=== PATIENT | male | born 1950 | race Caucasian/White ===

== ENCOUNTER 2024-08-26 09:21 | Inpatient (IN) | payer MEDICARE ==
[2024-08-26 11:04] VITALS: BMI 24.8
[2024-08-26] MEDS ORDERED: Glucagon 1 MG/ML KIT IM PRN (12:10)
[2024-08-26] MEDS ORDERED: Dextrose 50% Abboject 50 ML SYRINGE SLOW IVP PRN (12:10)
[2024-08-26] MEDS ORDERED: Acetaminophen 325 MG TAB PO PRN (12:10)
[2024-08-26] MEDS: TETANUS, DIPHTHERIA TOX,ADULT (TDVAX) 0.5 ML VIAL IM ONE (13:56)
[2024-08-26] MEDS: Mometasone 200 MCG/Formoterol 5 MCG 120 PUFF INHALER INH SCH (18:51)
[2024-08-26] MEDS: HYDROcodone/Acetaminophen 5/325 mg Tablet PO PRN (19:00)
[2024-08-26] MEDS: metFORMIN 500 MG TAB PO SCH (20:26)
[2024-08-27] MEDS ORDERED: Methocarbamol 500 MG TAB PO PRN (04:37)
[2024-08-27] MEDS ORDERED: Acetaminophen 325 MG TAB PO PRN (04:38)
[2024-08-27 05:13] LABS: #Basophils 0.08 10x3/uL (0.0-0.2); #Eosinophils 0.09 10x3/uL (0.0-0.7); #Monocytes 0.93 10x3/uL (0.11-0.59); #Neutrophils 9.05 10x3/uL (1.40-6.50); %Basophils 0.7 % (0.0-1.0); %Eosinophils 0.8 % (0.0-10.0); %Lymphocytes 12.8 % (21.0-51.0); %Monocytes 8.0 % (0.0-10.0); %Neutrophils 77.4 % (42.0-75.0); Hematocrit 29.3 % (42.0-52.0); Hemoglobin 9.1 g/dL (14.0-18.0); Mean Corpuscular Hemoglobin 30.1 pg (27.0-31.0); Mean Corpuscular Volume 97.0 fL (78.0-98.0); Platelet Count 383 10x3/uL (130-400); Red Blood Cell (RBC) Count 3.02 mill/uL (4.70-6.10); White Blood Cell (WBC) Count 11.69 10x3/uL (4.8-10.8)
[2024-08-27 06:03] LABS: Anion Gap 13 mmol/L (10-20); BUN (Urea Nitrogen) 11 mg/dL (8.4-25.7); Calc. Creatinine Clearance 104 mL/min (70-130); Calcium 8.3 mg/dL (7.8-10.44); Carbon Dioxide 25 mmol/L (23-31); Chloride 104 mmol/L (98-107); Glucose 107 mg/dL (83-110); Potassium 4.1 mmol/L (3.5-5.1); Sodium 138 mmol/L (136-145)
[2024-08-27] MEDS ORDERED: CEFAZOLIN 2 GM VIAL ONE (10:48)
[2024-08-27] MEDS ORDERED: fentaNYL PF 100 MCG/2 ML SYRINGE ONE (10:54)
[2024-08-27] MEDS ORDERED: PROPOFOL 40 ML ONE (10:54)
[2024-08-27] MEDS ORDERED: Lidocaine 1% PF 5 ML VIAL ONE (11:10)
[2024-08-27] MEDS ORDERED: Calcium Chloride 1 GM/10 ML Abboject SYRINGE ONE (11:12)
[2024-08-27] MEDS ORDERED: PHENYLEPHRINE-NS 100 MCG/ML 10 ML SYRINGE ONE ×2 (11:12→12:36)
[2024-08-27] MEDS ORDERED: Ondansetron PF 4 MG/2 ML Vial ONE ×2 (11:19→12:34)
[2024-08-27] MEDS ORDERED: HYDROmorphone 2 MG/ML VIAL ONE (12:06)
[2024-08-27] MEDS ORDERED: PACU-Morphine 4MG/ML VIAL SLOW IVP PRN (12:24)
[2024-08-27] MEDS ORDERED: Ketorolac Tromethamine 30 MG (1 mL) VIAL ONE (12:34)
[2024-08-27 16:18] VITALS: BMI 24.8
[2024-08-27] MEDS: ALPRAZolam 0.25 MG TAB PO SCH (20:07)
[2024-08-28 04:01] LABS: #Basophils 0.03 10x3/uL (0.0-0.2); #Eosinophils Less than 0.03 10x3/uL (0.0-0.7); #Monocytes 1.44 10x3/uL (0.11-0.59); #Neutrophils 13.29 10x3/uL (1.40-6.50); %Basophils 0.2 % (0.0-1.0); %Eosinophils 0.0 % (0.0-10.0); %Lymphocytes 6.2 % (21.0-51.0); %Monocytes 9.1 % (0.0-10.0); %Neutrophils 84.1 % (42.0-75.0); Hematocrit 27.0 % (42.0-52.0); Hemoglobin 8.2 g/dL (14.0-18.0); Mean Corpuscular Hemoglobin 29.7 pg (27.0-31.0); Mean Corpuscular Volume 97.8 fL (78.0-98.0); Platelet Count 438 10x3/uL (130-400); Red Blood Cell (RBC) Count 2.76 mill/uL (4.70-6.10); White Blood Cell (WBC) Count 15.80 10x3/uL (4.8-10.8)
[2024-08-28 04:27] LABS: Anion Gap 16 mmol/L (10-20); BUN (Urea Nitrogen) 14 mg/dL (8.4-25.7); Calc. Creatinine Clearance 92 mL/min (70-130); Calcium 8.5 mg/dL (7.8-10.44); Carbon Dioxide 24 mmol/L (23-31); Chloride 101 mmol/L (98-107); Glucose 114 mg/dL (83-110); Potassium 4.4 mmol/L (3.5-5.1); Sodium 137 mmol/L (136-145)
[2024-08-28 06:04] LABS: Magnesium 1.6 mg/dL (1.6-2.6)
[2024-08-28] MEDS: Senokot S 8.6-50 MG TAB PO SCH (08:53)
[2024-08-28] MEDS: Enoxaparin 40 MG (0.4 mL) SYRINGE SC SCH (08:53)
[2024-08-28] MEDS: Magnesium 2 GM/50 ML(in water) 2 GM in Premix 1 BAG IVPB SCH (08:55)
[2024-08-28] MEDS ORDERED: Propofol BOLUS 1,000 MG/100 ML VIAL IV PRN (14:30)
[2024-08-28] MEDS ORDERED: Fentanyl BOLUS 100 ML IVPB PRN (14:30)
[2024-08-28] MEDS ORDERED: DISCONTINUE PREVIOUS NARCOTIC PAIN MEDICATIONS AND BENZODIAZEPINES FS SCH (14:30)
[2024-08-28 14:38] LABS: Actual Bicarbonate (HCO3a) 23.3 mEq/L (22-28); Base Excess (BEa) -4.9 mEq/L (-2.0 to +3.0); Calcium, Ionized (arterial) 1.16 mmol/L (1.12-1.30); Hematocrit-ABG 25 % (42.0-52.0); Hemoglobin (Hb) 8.5 g/dL (14.0-18.0); O2 Tension (PaO2), arterial 150.9 mmHg (> 70.0); Potassium - ABG Lab 4.35 mmol/L (3.70-5.30)
[2024-08-28 14:39] LABS: ALV-art Gradient 128.350 mmHg (0-20); CO2 Tension 61.8 mmHg (35.0-45.0); Puncture Site Left Brachial artery; pH, Arterial 7.195 (7.35-7.45)
[2024-08-28] MEDS ORDERED: Ventilator Sedation Protocol 1 EACH FS SCH (14:45)
[2024-08-28] MEDS: Ventilator Sedation Protocol 1 EACH FS ONE (15:00)
[2024-08-28 15:13] LABS: Hematocrit 29.5 % (42.0-52.0); Hemoglobin 9.0 g/dL (14.0-18.0); Mean Corpuscular Hemoglobin 30.3 pg (27.0-31.0); Mean Corpuscular Volume 99.3 fL (78.0-98.0); Platelet Count 800 10x3/uL (130-400); Red Blood Cell (RBC) Count 2.97 mill/uL (4.70-6.10); White Blood Cell (WBC) Count 32.29 10x3/uL (4.8-10.8)
[2024-08-28] MEDS: Sodium Bicarb 50 MEQ/50 ML Abboject 8.4% SYRINGE IVP SCH (15:32)
[2024-08-28] MEDS: Pantoprazole 40 MG VIAL IVP SCH (15:33)
[2024-08-28 15:41] LABS: Anisocytosis SLIGHT = 6-15 cells HPF (0-5); Burr Cells MODERATE= 6-15 cells HPF (0-1); Macrocytosis SLIGHT = 6-15 cells HPF (0-5); Platelet Adequacy Comment Platelets Increased; Poikilocytosis SLIGHT = 6-15 cells HPF (0-5); Polychromasia SLIGHT = 2-3 cells HPF (0-2); Smudge Cells 3.0 %
[2024-08-28] MEDS: Azithromycin 500 MG in Sodium Chloride 0.9% 250 ML 250 ML IVPB SCH (15:45)
[2024-08-28] MEDS: cefTRIAXone\\ROCEPHIN 1 GM in Sodium Chloride 0.9% 100 ML IVPB SCH (15:45)
[2024-08-28 17:26] LABS: Actual Bicarbonate (HCO3v) 26.9 mEq/L (22-28); Base Excess -0.9 mEq/L (-2.0 to +3.0); Calcium, Ionized (venous) 1.10 mmol/L (1.16-1.32); Chloride (VBG) 99 mmol/L (98-106); Hematocrit-VBG 25 % (42.0-52.0); Hemoglobin (Hb) 8.5 g/dL (12.6-17.4); Potassium (VBG) 4.28 mmol/L (3.70-5.30); Sodium 135 mmol/L (133-146)
[2024-08-29] MEDS: Pantoprazole 40 MG VIAL IVP SCH (05:20)
[2024-08-29 05:50] LABS: #Basophils Less than 0.03 10x3/uL (0.0-0.2); #Eosinophils Less than 0.03 10x3/uL (0.0-0.7); #Monocytes 0.42 10x3/uL (0.11-0.59); #Neutrophils 12.47 10x3/uL (1.40-6.50); %Basophils 0.1 % (0.0-1.0); %Eosinophils 0.0 % (0.0-10.0); %Lymphocytes 2.4 % (21.0-51.0); %Monocytes 3.2 % (0.0-10.0); %Neutrophils 93.8 % (42.0-75.0); Hematocrit 21.7 % (42.0-52.0); Hemoglobin 6.7 g/dL (14.0-18.0); Mean Corpuscular Hemoglobin 30.5 pg (27.0-31.0); Mean Corpuscular Volume 98.6 fL (78.0-98.0); Platelet Count 405 10x3/uL (130-400); Red Blood Cell (RBC) Count 2.20 mill/uL (4.70-6.10); White Blood Cell (WBC) Count 13.28 10x3/uL (4.8-10.8)
[2024-08-29 06:06] LABS: Anion Gap 15 mmol/L (10-20); BUN (Urea Nitrogen) 15 mg/dL (8.4-25.7); Calc. Creatinine Clearance 98 mL/min (70-130); Calcium 8.1 mg/dL (7.8-10.44); Carbon Dioxide 26 mmol/L (23-31); Chloride 101 mmol/L (98-107); Glucose 135 mg/dL (83-110); Magnesium 1.8 mg/dL (1.6-2.6); Potassium 4.7 mmol/L (3.5-5.1); Sodium 137 mmol/L (136-145)
[2024-08-29] MEDS: Magnesium 2 GM/50 ML(in water) 2 GM in Premix 1 BAG IVPB SCH (08:18)
[2024-08-29] MEDS ORDERED: DC Sedation Protocol FS SCH (13:51)
[2024-08-29 14:59] LABS: Actual Bicarbonate (HCO3v) 23.3 mEq/L (22-28); Base Excess -4.8 mEq/L (-2.0 to +3.0); Calcium, Ionized (venous) 1.19 mmol/L (1.16-1.32); Chloride (VBG) 99 mmol/L (98-106); Hematocrit-VBG 30 % (42.0-52.0); Hemoglobin (Hb) 10.3 g/dL (12.6-17.4); Potassium (VBG) 4.76 mmol/L (3.70-5.30); Sodium 136 mmol/L (133-146)
[2024-08-29 15:09] LABS: Hematocrit 28.7 % (42.0-52.0); Hemoglobin 8.9 g/dL (14.0-18.0); Mean Corpuscular Hemoglobin 30.9 pg (27.0-31.0); Mean Corpuscular Volume 99.7 fL (78.0-98.0); Platelet Count 672 10x3/uL (130-400); Red Blood Cell (RBC) Count 2.88 mill/uL (4.70-6.10); White Blood Cell (WBC) Count 25.42 10x3/uL (4.8-10.8)
[2024-08-29 15:18] LABS: ALT (SGPT) 10 U/L (Less than 45); AST (SGOT) 52 U/L (11-34); Albumin 2.7 g/dL (3.1-4.5); Alkaline Phosphatase 70 U/L (40-110); Anion Gap 18 mmol/L (10-20); BUN (Urea Nitrogen) 22 mg/dL (8.4-25.7); Bilirubin, Total 0.8 mg/dL (0.3-1.2); Calc. Creatinine Clearance 80 mL/min (70-130); Calcium 8.7 mg/dL (7.8-10.44); Carbon Dioxide 24 mmol/L (23-31); Chloride 100 mmol/L (98-107); Globulin 3.0 g/dL (2.4-3.5); Glucose 182 mg/dL (83-110); Potassium 4.8 mmol/L (3.5-5.1); Sodium 137 mmol/L (136-145)
[2024-08-29 15:36] LABS: Macrocytosis SLIGHT = 6-15 cells HPF (0-5); Ovalocytes SLIGHT = 2-5 cells HPF (0-1); Platelet Adequacy Comment Platelets Increased; Polychromasia SLIGHT = 2-3 cells HPF (0-2); Smudge Cells 7.0 %
[2024-08-29 15:43] LABS: Troponin I 6.593 ng/mL (< 0.028)
[2024-08-29] MEDS: Albumin 5% 12.5 GM (250 mL) BOT IVPB SCH (23:55)
[2024-08-30] MEDS: NOREPINEPHRINE 8 MG/250 ML-D5W 250 ML IVPB SCH (01:30)
[2024-08-30] MEDS: NOREPINEPHRINE 8 MG/250 ML-D5W 250 ML ONE (01:40)
[2024-08-30 03:19] LABS: Actual Bicarbonate (HCO3v) 26.3 mEq/L (22-28); Base Excess -0.4 mEq/L (-2.0 to +3.0); Calcium, Ionized (venous) 1.20 mmol/L (1.16-1.32); Chloride (VBG) 99 mmol/L (98-106); Hematocrit-VBG 29 % (42.0-52.0); Hemoglobin (Hb) 9.9 g/dL (12.6-17.4); Potassium (VBG) 5.11 mmol/L (3.70-5.30); Sodium 136 mmol/L (133-146)
[2024-08-30 03:24] LABS: #Basophils Less than 0.03 10x3/uL (0.0-0.2); #Eosinophils Less than 0.03 10x3/uL (0.0-0.7); #Monocytes 0.87 10x3/uL (0.11-0.59); #Neutrophils 19.40 10x3/uL (1.40-6.50); %Basophils 0.0 % (0.0-1.0); %Eosinophils 0.0 % (0.0-10.0); %Lymphocytes 2.2 % (21.0-51.0); %Monocytes 4.2 % (0.0-10.0); %Neutrophils 92.8 % (42.0-75.0); Hematocrit 26.8 % (42.0-52.0); Hemoglobin 8.3 g/dL (14.0-18.0); Mean Corpuscular Hemoglobin 31.0 pg (27.0-31.0); Mean Corpuscular Volume 100.0 fL (78.0-98.0); Platelet Count 596 10x3/uL (130-400); Red Blood Cell (RBC) Count 2.68 mill/uL (4.70-6.10); White Blood Cell (WBC) Count 20.90 10x3/uL (4.8-10.8)
[2024-08-30 03:53] LABS: Anion Gap 16 mmol/L (10-20); BUN (Urea Nitrogen) 26 mg/dL (8.4-25.7); Calc. Creatinine Clearance 67 mL/min (70-130); Calcium 8.8 mg/dL (7.8-10.44); Carbon Dioxide 26 mmol/L (23-31); Chloride 99 mmol/L (98-107); Glucose 167 mg/dL (83-110); Potassium 4.6 mmol/L (3.5-5.1); Sodium 136 mmol/L (136-145)
[2024-08-30 10:04] LABS: Hematocrit 28.5 % (42.0-52.0); Hemoglobin 8.9 g/dL (14.0-18.0); Platelet Count 596 10x3/uL (130-400)
[2024-08-30] MEDS: Aspirin 81 mg Enteric Coated Tablet PO SCH (10:19)
[2024-08-30 10:48] LABS: Troponin I 8.311 ng/mL (< 0.028)
[2024-08-30] MEDS: Heparin 10,000 UNITS/ 10 ML VIAL SLOW IVP SCH (11:09)
[2024-08-31] MEDS: Magnesium 2 GM/50 ML(in water) 2 GM in Premix 1 BAG IVPB SCH (03:08)
[2024-08-31] MEDS: Ondansetron PF 4 MG/2 ML Vial IVP PRN (07:04)
[2024-08-31] MEDS: Aspirin 81 mg Enteric Coated Tablet PO SCH (09:19)
[2024-09-01 08:36] VITALS: BP 125/81; TEMP 97.8
== END 2024-09-01 09:33 | disposition expired | DRG 492 ==
LOC: 2SE 09:21 → CCU 08-28 14:17 → MSONC 08-31 17:40
PROVIDERS: ADMIT Surgery; ATTEND Internal Medicine
PROC: 0PSF04Z Reposition Right Humeral Shaft with Internal Fixation Device, Open Approach (ICD-10-PCS; principal; 2024-08-26)
PROC: 3E0234Z Introduction of Serum, Toxoid and Vaccine into Muscle, Percutaneous Approach (ICD-10-PCS; 2024-08-26)
PROC: 30233J1 Transfusion of Nonautologous Serum Albumin into Peripheral Vein, Percutaneous Approach (ICD-10-PCS; 2024-08-27)
PROC: 3E03329 Introduction of Other Anti-infective into Peripheral Vein, Percutaneous Approach (ICD-10-PCS; 2024-08-27)
PROC: 4A033R1 Measurement of Arterial Saturation, Peripheral, Percutaneous Approach (ICD-10-PCS; 2024-08-28)
PROC: 0T9B70Z Drainage of Bladder with Drainage Device, Via Natural or Artificial Opening (ICD-10-PCS; 2024-08-28)
PROC: 0D9670Z Drainage of Stomach with Drainage Device, Via Natural or Artificial Opening (ICD-10-PCS; 2024-08-28)
PROC: 5A1935Z Respiratory Ventilation, Less than 24 Consecutive Hours (ICD-10-PCS; 2024-08-28)
PROC: 06HY33Z Insertion of Infusion Device into Lower Vein, Percutaneous Approach (ICD-10-PCS; 2024-08-29)
PROC: 30233N1 Transfusion of Nonautologous Red Blood Cells into Peripheral Vein, Percutaneous Approach (ICD-10-PCS; 2024-08-29)
PROC: 3E04329 Introduction of Other Anti-infective into Central Vein, Percutaneous Approach (ICD-10-PCS; 2024-08-29)
PROC: 5A0935A Assistance with Respiratory Ventilation, Less than 24 Consecutive Hours, High Flow/Velocity Cannula (ICD-10-PCS; 2024-08-29)
PROC: 3E033XZ Introduction of Vasopressor into Peripheral Vein, Percutaneous Approach (ICD-10-PCS; 2024-08-30)
PROC: 3E043XZ Introduction of Vasopressor into Central Vein, Percutaneous Approach (ICD-10-PCS; 2024-08-30)
PROC: 5A09357 Assistance with Respiratory Ventilation, Less than 24 Consecutive Hours, Continuous Positive Airway Pressure (ICD-10-PCS; 2024-08-30)
DX: M84.521A Pathological fracture in neoplastic disease, right humerus, initial encounter for fracture (principal); E43 Unspecified severe protein-calorie malnutrition; G93.41 Metabolic encephalopathy; J96.21 Acute and chronic respiratory failure with hypoxia; J18.9 Pneumonia, unspecified organism; I21.A1 Myocardial infarction type 2; J96.22 Acute and chronic respiratory failure with hypercapnia; Z66 Do not resuscitate; Z51.5 Encounter for palliative care; C34.90 Malignant neoplasm of unspecified part of unspecified bronchus or lung; C79.31 Secondary malignant neoplasm of brain; C79.51 Secondary malignant neoplasm of bone; J44.1 Chronic obstructive pulmonary disease with (acute) exacerbation; J44.0 Chronic obstructive pulmonary disease with (acute) lower respiratory infection; C77.3 Secondary and unspecified malignant neoplasm of axilla and upper limb lymph nodes; I47.20 Ventricular tachycardia, unspecified; Z23 Encounter for immunization; I48.91 Unspecified atrial fibrillation; E78.5 Hyperlipidemia, unspecified; I25.10 Atherosclerotic heart disease of native coronary artery without angina pectoris; F12.90 Cannabis use, unspecified, uncomplicated; E11.51 Type 2 diabetes mellitus with diabetic peripheral angiopathy without gangrene; E11.42 Type 2 diabetes mellitus with diabetic polyneuropathy; D63.0 Anemia in neoplastic disease; R79.89 Other specified abnormal findings of blood chemistry; E11.621 Type 2 diabetes mellitus with foot ulcer; L97.529 Non-pressure chronic ulcer of other part of left foot with unspecified severity; L97.519 Non-pressure chronic ulcer of other part of right foot with unspecified severity; I11.0 Hypertensive heart disease with heart failure; I50.9 Heart failure, unspecified; G56.31 Lesion of radial nerve, right upper limb; W06.XXXA Fall from bed, initial encounter; I25.2 Old myocardial infarction; Z95.5 Presence of coronary angioplasty implant and graft; Z98.890 Other specified postprocedural states; Z95.828 Presence of other vascular implants and grafts; Z89.421 Acquired absence of other right toe(s); Z87.891 Personal history of nicotine dependence; Z79.899 Other long term (current) drug therapy; Z79.51 Long term (current) use of inhaled steroids; Z79.02 Long term (current) use of antithrombotics/antiplatelets; Z79.84 Long term (current) use of oral hypoglycemic drugs; Z68.29 Body mass index [BMI] 29.0-29.9, adult; Z99.81 Dependence on supplemental oxygen
CPT/HCPCS: 36415; 36416; 36430; 36600; 70450; 70553; 71045; 72125; 76376; 80048; 80053; 82805; 83605; 83735; 83880; 84484; 85025; 85610; 85730; 86850; 86900; 86901; 87040; 88307; 88341; 88342; 93005; 93010; 93306; 93970; 94002; 94003; 94640; 94660; 96374; 96375; 96376; 97139; C1713; J0282; J0456; J0696; J1100; J1171; J1644; J1650; J1885; J2060; J2270; J2272; J2405; J2470; J2704; J2919; J3010; J3475; J7030; J7050; J7070; J7120; J7620; J7626; P9016; P9045